=== PATIENT | female | born 1945 | race Hispanic/Latino ===

== ENCOUNTER → 2018-01-12 | Outpatient (CLI) | payer OTHER ==
[~2018-01-12] MED LIST: ALPR-409 PO; DESI50TA PO; LISI-617 PO; MULT-1247 PO; NEBI10TA PO
== END | disposition home or self-care (01) ==
LOC: RAH 09:24
PROVIDERS: ATTEND Internal Medicine
DX: Z12.31 Encounter for screening mammogram for malignant neoplasm of breast (principal)
CPT/HCPCS: 77067

== ENCOUNTER → 2019-01-17 | Outpatient (CLI) | payer OTHER | END | disposition home or self-care (01) | LOC: RAH 10:52 | PROVIDERS: ATTEND Internal Medicine | DX: N64.4 Mastodynia (principal) | CPT/HCPCS: 77066 ==

== ENCOUNTER → 2021-01-19 | Outpatient (CLI) | payer MEDICARE ==
[~2021-01-19] MED LIST changes: -LISI-617 PO; +LISI-809 PO
== END | disposition home or self-care (01) ==
LOC: RAH 15:59
PROVIDERS: ATTEND Internal Medicine
DX: Z12.31 Encounter for screening mammogram for malignant neoplasm of breast (principal)
CPT/HCPCS: 77067

== ENCOUNTER → 2023-07-10 | Outpatient (CLI) | payer MEDICARE ==
[~2023-07-10] MED LIST changes: -LISI-809 PO; +LISI5TAB21 PO
[2023-07-10 16:21] LABS: CREATININE 0.8 mg/dL (0.5-1.5); POTASSIUM 5.3 mmol/L (3.5-5.1)
== END | disposition home or self-care (01) ==
LOC: LAB 11:26
PROVIDERS: ATTEND Internal Medicine Cardiovascular Disease
DX: R00.2 Palpitations (principal)
CPT/HCPCS: 36415; 80048

== ENCOUNTER → 2023-10-09 | Outpatient (CLI) | payer MEDICARE ==
[2023-10-09 16:27] LABS: CREATININE 0.6 mg/dL (0.5-1.5); POTASSIUM 3.9 mmol/L (3.5-5.1)
== END | disposition home or self-care (01) ==
LOC: LAB 11:43
PROVIDERS: ATTEND Internal Medicine Cardiovascular Disease
DX: I10 Essential (primary) hypertension (principal)
CPT/HCPCS: 36415; 80048

== ENCOUNTER → 2023-10-16 | Outpatient (CLI) | payer MEDICARE ==
[2023-10-16 16:28] LABS: CREATININE 0.8 mg/dL (0.5-1.5); POTASSIUM 4.2 mmol/L (3.5-5.1)
== END | disposition home or self-care (01) ==
LOC: LAB 13:05
PROVIDERS: ATTEND Internal Medicine Cardiovascular Disease
DX: I10 Essential (primary) hypertension (principal)
CPT/HCPCS: 36415; 80048

== ENCOUNTER → 2024-03-06 | Outpatient (CLI) | payer MEDICARE ==
[2024-03-06 16:34] LABS: ALBUMIN 3.7 g/dL (3.5-5.0); BILIRUBIN,TOTAL 0.2 mg/dL (0.2-1.0); CREATININE 0.7 mg/dL (0.5-1.0); POTASSIUM 3.9 mmol/L (3.5-5.1); TOTAL PROTEIN, SERUM 7.2 g/dL (6.0-8.3)
== END | disposition home or self-care (01) ==
LOC: LAB 13:49
PROVIDERS: ATTEND Internal Medicine Cardiovascular Disease
DX: I10 Essential (primary) hypertension (principal)
CPT/HCPCS: 36415; 80053

== ENCOUNTER → 2024-03-11 | Outpatient (CLI) | payer MEDICARE ==
[~2024-03-11] MED LIST changes: +IOHEXOL 350 MG/ML 100ML INFUS..BTL IV ONE
== END | disposition home or self-care (01) ==
LOC: RAH 09:22
PROVIDERS: ATTEND Internal Medicine Cardiovascular Disease
DX: I10 Essential (primary) hypertension (principal); K44.9 Diaphragmatic hernia without obstruction or gangrene; M47.815 Spondylosis without myelopathy or radiculopathy, thoracolumbar region; M41.86 Other forms of scoliosis, lumbar region
CPT/HCPCS: 74175; Q9967

== ENCOUNTER → 2024-03-13 | Outpatient (CLI) | payer MEDICARE ==
[~2024-03-13] MED LIST changes: -IOHEXOL 350 MG/ML 100ML INFUS..BTL IV ONE
[2024-03-13 16:51] LABS: CREATININE 0.8 mg/dL (0.5-1.0)
== END | disposition home or self-care (01) ==
LOC: LAB 13:38
PROVIDERS: ATTEND Internal Medicine Cardiovascular Disease
DX: I10 Essential (primary) hypertension (principal)
CPT/HCPCS: 36415; 80048

== ENCOUNTER → 2024-03-20 | Outpatient (CLI) | payer MEDICARE ==
[2024-03-20 16:28] LABS: CREATININE 0.9 mg/dL (0.5-1.0); POTASSIUM 4.7 mmol/L (3.5-5.1)
== END | disposition home or self-care (01) ==
LOC: LAB 11:50
PROVIDERS: ATTEND Internal Medicine Cardiovascular Disease
DX: I10 Essential (primary) hypertension (principal)
CPT/HCPCS: 36415; 80048

== ENCOUNTER → 2024-09-04 | Outpatient (CLI) | payer MEDICARE ==
[~2024-09-04] MED LIST changes: -NEBI10TA PO; +NEBI10TA10 PO
--- NOTE | 2024-09-04 11:31 | HMCIMG ---
PROCEDURE: MAMMO DX BILATERAL HISTORY: Hypertrophy of breast COMPARISON: 09/02/2022 TECHNIQUE: Bilateral digital diagnostic mammogram with CAD was performed. No additional views were obtained. FINDINGS: The breasts are heterogeneously dense, which may obscure small masses. Dystrophic calcifications are seen of both breasts. There is no evidence of a dominant mass, or suspicious microcalcification. There is no evidence of nipple retraction or skin thickening. IMPRESSION: 1. Stable mammogram. BI-RADS: CATEGORY 2: BENIGN FINDINGS Recommend monthly self breast exam as well as annual clinical examination. A negative x-ray should not delay biopsy if a dominant or clinically suspicious mass is present, since 8-10% of cancers are not identified by mammography. Dense breasts particularly, may obscure an underlying neoplasm. Some of these may be detected clinically and therefore, clinical examination is an essential part of breast evaluation.
== END | disposition home or self-care (01) ==
LOC: RAH 10:43
PROVIDERS: ATTEND Internal Medicine
DX: N62 Hypertrophy of breast (principal); R92.333 Mammographic heterogeneous density, bilateral breasts
CPT/HCPCS: 77066